=== PATIENT | female | born 1995 | race Caucasian/White ===

== ENCOUNTER 2016-06-09 17:18 | Emergency (ER) | payer BC ==
[2016-06-09 17:31] VITALS: O2SAT 100
--- NOTE | 2016-06-09 17:47 | ERPHSYRPT ---
- History of Present Illness Time Seen by Provider: 06/09/16 17:42 Historian: patient Exam Limitations: no limitations Patient Subjective Stated Complaint: PT REPORTS WAKING UP THIS AM WITH LEFT SIDED HEADACHE-STATES THAT WHEN SHE WENT TO BEND OVER RIGHT SIDED PAIN RADIATING TO CHEST BEGAN THIS AM-STATES THAT S/S WORSENED THROUGHOUT THE DAY- STATES THAT PAIN IS NOW IN HER CHEST NONRADIAITING-REPORTS HEADACHE ALL OVER WITH HER TEETH FEELING LOOSE ON THE LEFT SIDE-DENIES NUMBNESS OR TINLGING- DENIES SOB-DENIES DIAPHOESIS Triage Nursing Assessment: PT PINK WARM ET DRY-A & O X 3-RESP EASY ET NONLABORED -PUPILS PERLL-PT MOVING ALL 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 She has seen her family doctor and a member services coordinator for this. The palpitations have been significantly worse for the past 2 or 3 days. When she woke up today at noon, the patient had a left sided headache with left eye pain. This progressed to having a pain in her teeth in her left jaw. She also says that when she bends over she has right abdominal pain. Also today she has left sided chest pain that feel like palpitations that come and go. She called her member services coordinator who told her to be seen today. She does drink caffeinated drinks daily. She takes no prescribed medicines. Timing/Duration: today Activities at Onset: none Quality: aching, other (palpitations) Location: substernal Chest Pain Radiation: no radiation Severity of Pain-Max: mild Severity of Pain-Current: mild Associated Symptoms: palpitations, rash (a few spots on her leg and hand), headache Prior Chest Pain/Cardiac Workup: recently seen/treated Nitro Today/Relief: no nitro taken today Aspirin Treatment Today: no aspirin today Allergies/Adverse Reactions: No Known Drug Allergies Allergy (Unverified 06/09/16 17:31) Home Medications: No Home Meds 1 ea UD 06/09/16 [History] Hx Tetanus, Diphtheria Vaccination/Date Given: Yes Hx Influenza Vaccination/Date Given: Yes Hx Pneumococcal Vaccination/Date Given: No Immunizations Up to Date: Yes - Review of Systems Constitutional: No Fever, No Chills Eyes: No Symptoms Ears, Nose, & Throat: No Symptoms Respiratory: No Cough, No Dyspnea Cardiac: Chest Pain, Palpitations Abdominal/Gastrointestinal: Abdominal Pain Genitourinary Symptoms: No Dysuria Musculoskeletal: No Back Pain, No Neck Pain Skin: No Rash Neurological: No Dizziness, No Focal Weakness, No Sensory Changes Psychological: No Symptoms Endocrine: No Symptoms Hematologic/Lymphatic: No Symptoms Immunological/Allergic: No Symptoms All Other Systems: Reviewed and Negative - Past Medical History Pertinent Past Medical History: No - Past Surgical History Past Surgical History: No - Social History Smoking Status: Never smoker Exposure to second hand smoke: No Drug Use: none Patient Lives Alone: No - Female History Hx Last Menstrual Period: LAST MONTH - Nursing Vital Signs Temperature: 98.1 F Temperature Source: Oral Pulse Rate: 93 Respiratory Rate: 20 Blood Pressure: 128/80 Pain Intensity: 5 - Physical Exam General Appearance: anxiety, thin, other (tearful) Eye Exam: PERRL/EOMI, eyes nml inspection Ears, Nose, Throat Exam: normal ENT inspection, moist mucous membranes Neck Exam: normal inspection, non-tender, supple, full range of motion Respiratory Exam: normal breath sounds, lungs clear, No respiratory distress Cardiovascular Exam: regular rate/rhythm, normal heart sounds Gastrointestinal/Abdomen Exam: soft, No tenderness, No mass Pelvic Exam: not done Rectal Exam: not done Back Exam: normal inspection, No CVA tenderness, No vertebral tenderness Extremity Exam: normal inspection, normal range of motion Neurologic Exam: alert, oriented x 3, cooperative, normal mood/affect, sensation nml, No motor deficits Skin Exam: normal color, warm, dry, rash (one spot on right knee, left foot) SpO2 Interpretation: normal SpO2: 100 Oxygen Delivery: Room Air - Course EKG Interpreted by Me: Sinus Rhythm, NORMAL AXIS, NORMAL INTERVALS, NORMAL QRS, NORMAL ST-T - Radiology Exams Chest X-ray Interpretation: Interpreted by me, Negative Ordered Tests: Active Orders 24 hr Category Date Time Status EKG-ER Only STAT Care 06/09/16 17:49 Active IV Insertion STAT Care 06/09/16 17:49 Active CHEST 2 VIEWS (PA AND LAT) Stat Exams 06/09/16 17:50 Taken CBC W DIFF Stat Lab 06/09/16 17:45 Completed CMP Stat Lab 06/09/16 17:45 Completed TROPONIN Stat Lab 06/09/16 17:45 Completed TSH [TSH, 3RD Generation] Stat Lab 06/09/16 17:45 Completed UA Stat Lab 06/09/16 18:50 Completed Urine Triage Profile Stat Lab 06/09/16 18:50 Completed Medication Summary Discontinued Medications Generic Name Dose Route Start Last Admin Trade Name Maykel PRN Reason Stop Dose Admin Lorazepam 1 mg 06/09/16 17:52 06/09/16 18:32 Ativan 2 Mg/1 Ml Vial IV 06/09/16 17:53 1 mg STAT ONE Administration Lorazepam Confirm 06/09/16 18:28 Ativan 2 Mg/1 Ml Vial Administered 06/09/16 18:29 Dose 2 mg .ROUTE .[facility] ONE Lab/Rad Data: Laboratory Result Diagrams 06/09/16 17:45 06/09/16 17:45 Laboratory Results 06/09/16 06/09/16 06/09/16 Range/Units 18:50 18:50 17:45 WBC 7.8 (4.0-10.5) K/mm3 RBC 4.44 (4.1-5.4) M/mm3 Hgb 12.6 (12.0-16.0) gm/dl Hct 39.5 (35-47) % MCV 89.0 (78-100) fl MCH 28.4 (26-32) pg MCHC 31.9 L (32-36) g/dl RDW 14.4 H (11.5-14.0) % Plt Count 157 (150-450) K/mm3 MPV 10.7 H (6-9.5) fl Gran % 57.7 (36.0-66.0) % Lymphocytes % 30.9 (24.0-44.0) % Monocytes % 10.0 (0.0-12.0) % Eosinophils % 1.3 (0.00-5.0) % Basophils % 0.1 (0.0-0.4) % Basophils # 0.01 (0-0.4) Sodium (136-145) mEq/L Potassium (3.5-5.1) mEq/L Chloride (98-107) mEq/L Carbon Dioxide (21-32) mEq/L Anion Gap (5-15) MEQ/L BUN (9-20) mg/dL Creatinine (0.55-1.30) mg/dl Estimated GFR ML/MIN Glucose (70-110) MG/DL Calcium (8.5-10.1) mg/dL Total Bilirubin (0.2-1.0) mg/dL AST (15-37) U/L ALT (12-78) U/L Alkaline Phosphatase (46-116) U/L Troponin I (0.000-0.056) ng/ml Serum Total Protein (6.4-8.2) gm/dL Albumin (3.4-5.0) g/dL TSH 3rd Generation (0.358-3.740) mIU/L Ur Collection Type CLEAN CATCH Urine Color YELLOW (YELLOW) Urine Appearance CLEAR (CLEAR) Urine pH 6.5 (5-6) Ur Specific [place] 1.025 (1.005-1.025) Urine Protein NEGATIVE (Negative) Urine Glucose (UA) NEGATIVE (NEGATIVE) mg/dL Urine Ketones NEGATIVE (NEGATIVE) Urine Nitrite NEGATIVE (NEGATIVE) Urine Bilirubin NEGATIVE (NEGATIVE) Urine Urobilinogen 0.2 (0-1) mg/dL Urine WBC (Auto) NEGATIVE (NEGATIVE) Urine RBC (Auto) NEGATIVE (0-5) Fernando/ul Urine Opiates Level NEG. (NEGATIVE) Ur Methadone NEG. (NEGATIVE) Urine Barbiturates NEG. (NEGATIVE) Ur Phencyclidine (PCP) NEG. (NEGATIVE) Urine Amphetamine NEG. (NEGATIVE) U Benzodiazepine Level NEG. (NEGATIVE) Urine Cocaine NEG. (NEGATIVE) Urine Marijuana (THC) NEG. (NEGATIVE) Specimen Received 06/09/16:1850 06/09/16 06/09/16 Range/Units 17:45 17:45 WBC (4.0-10.5) K/mm3 RBC (4.1-5.4) M/mm3 Hgb (12.0-16.0) gm/dl Hct (35-47) % MCV (78-100) fl MCH (26-32) pg MCHC (32-36) g/dl RDW (11.5-14.0) % Plt Count (150-450) K/mm3 MPV (6-9.5) fl Gran % (36.0-66.0) % Lymphocytes % (24.0-44.0) % Monocytes % (0.0-12.0) % Eosinophils % (0.00-5.0) % Basophils % (0.0-0.4) % Basophils # (0-0.4) Sodium 142 (136-145) mEq/L Potassium 3.5 (3.5-5.1) mEq/L Chloride 106 (98-107) mEq/L Carbon Dioxide 25.7 (21-32) mEq/L Anion Gap 13.9 (5-15) MEQ/L BUN 12 (9-20) mg/dL Creatinine 0.76 (0.55-1.30) mg/dl Estimated GFR > 60 ML/MIN Glucose 79 (70-110) MG/DL Calcium 8.8 (8.5-10.1) mg/dL Total Bilirubin 0.4 (0.2-1.0) mg/dL AST 16 (15-37) U/L ALT 18 (12-78) U/L Alkaline Phosphatase 47 (46-116) U/L Troponin I < 0.017 (0.000-0.056) ng/ml Serum Total Protein 7.4 (6.4-8.2) gm/dL Albumin 4.4 (3.4-5.0) g/dL TSH 3rd Generation 0.839 (0.358-3.740) mIU/L Ur Collection Type Urine Color (YELLOW) Urine Appearance (CLEAR) Urine pH (5-6) Ur Specific [place] (1.005-1.025) Urine Protein (Negative) Urine Glucose (UA) (NEGATIVE) mg/dL Urine Ketones (NEGATIVE) Urine Nitrite (NEGATIVE) Urine Bilirubin (NEGATIVE) Urine Urobilinogen (0-1) mg/dL Urine WBC (Auto) (NEGATIVE) Urine RBC (Auto) (0-5) Fernando/ul Urine Opiates Level (NEGATIVE) Ur Methadone (NEGATIVE) Urine Barbiturates (NEGATIVE) Ur Phencyclidine (PCP) (NEGATIVE) Urine Amphetamine (NEGATIVE) U Benzodiazepine Level (NEGATIVE) Urine Cocaine (NEGATIVE) Urine Marijuana (THC) (NEGATIVE) Specimen Received - Progress Progress: improved Air Movement: good Progress Note: 06/09/16 19:24 After ativan 1 mg IV, pt has no chest pain. Blood Culture(s) Obtained: No Antibiotics given: No Counseled pt/family regarding: lab results, diagnosis, need for follow-up, rad results - Departure Time of Disposition: 19:22 Departure Disposition: Home Clinical Impression: History of palpitations, Anxiety Condition: Stable Critical Care Time: No Additional Instructions: Follow up with your member services coordinator as scheduled.
[2016-06-09] MEDS ORDERED: Ativan 2 MG/1 ML VIAL IV ONE (17:52)
[2016-06-09 18:01] LABS: BASOPHIL % 0.1 % (0.0-0.4); Eosinophil % 1.3 % (0.00-5.0); Granulocytes % 57.7 % (36.0-66.0); Lymphocytes % 30.9 % (24.0-44.0); Mean Corpuscular Hemoglobin 28.4 pg (26-32); Mean Platelet Volume 10.7 fl (6-9.5); Platelet Count 157 K/mm3 (150-450); Red Blood Count 4.44 M/mm3 (4.1-5.4); Red Cell Distribution Width 14.4 % (11.5-14.0); White Blood Count 7.8 K/mm3 (4.0-10.5)
[2016-06-09 18:28] LABS: ALBUMIN 4.4 g/dL (3.4-5.0); ALKALINE PHOSPHATASE 47 U/L (46-116); ANION GAP 13.9 MEQ/L (5-15); BILIRUBIN,TOTAL 0.4 mg/dL (0.2-1.0); BLOOD UREA NITROGEN 12 mg/dL (9-20); CHLORIDE 106 mEq/L (98-107); Carbon Dioxide 25.7 mEq/L (21-32); Glucose 79 MG/DL (70-110); Potassium 3.5 mEq/L (3.5-5.1); SGOT/AST 16 U/L (15-37); SGPT/ALT 18 U/L (12-78); SODIUM 142 mEq/L (136-145); Total Protein 7.4 gm/dL (6.4-8.2)
[2016-06-09] MEDS ORDERED: Ativan 2 MG/1 ML VIAL ONE (18:28)
[2016-06-09 18:30] LABS: TROPONIN < 0.017 ng/ml (0.000-0.056)
[2016-06-09 19:02] VITALS: BP 128/80; PULSE 93
[2016-06-09 19:05] LABS: COMPLETE URINE MICROSCOPIC? NO; Collection Type CLEAN CATCH; Ph 6.5 (5-6)
--- NOTE | 2016-06-09 20:20 | XRAY ---
Indication: Chest pain. Comparison: None PA/lateral chest demonstrates normal heart and lungs. Bony thorax intact with mild scoliosis.
== END 2016-06-09 19:34 | disposition home or self-care (01) ==
LOC: ED 17:18
DX: R07.89 Other chest pain (principal); R00.2 Palpitations; F41.9 Anxiety disorder, unspecified
CPT/HCPCS: 36000; 36415; 71020; 80053; 80307; 81002; 84443; 84484; 85025; 93005; 93041; 96374; 99283; J2060

== ENCOUNTER 2016-11-17 11:14 | Emergency (ER) | payer BC ==
--- NOTE | 2016-11-17 11:37 | ERPHSYRPT ---
- History of Present Illness Time Seen by Provider: 11/17/16 11:30 Historian: patient Exam Limitations: no limitations Patient Subjective Stated Complaint: PT REPORTS ABDOMINAL PAIN X3 DAYS WITH RADIATION TO LEFT FLANK AND LOWER BACK. STATES SHE BELIEVED SHE COULD POSSIBLY BE AND HER AT HOME TEST WAS NEGATIVE. STATES SHE COULD NOT SLEEP LAST NIGHT DUE TO PAIN. Triage Nursing Assessment: PT IS AOX3, AMBULATORY TO COT WITHOUT DIFFICULTIES, RESPS ARE EASY AND NONLABORED, ABD IS SOFT AND TENDER, BOWEL SOUNDS PRESENT X4 AND NORMOACTIVE. PAIN IS PRESENT THROUGHOUT ABDOMEN AND RADIATES TO LEFT FLANK AND LOWER BACK. Physician History: The patient is a 21-year-old female who complains of 3 days of left flank pain and abdominal pain. Her pain was worse last night. She denies nausea, vomiting , or diarrhea. Her last menstrual period ended about one week ago. She denies dysuria. She denies any abdominal surgeries. Her past medical history is significant for anxiety and palpitations. She is sexually active. Timing/Duration: day(s) (3) Activities at Onset: none Quality: aching Abdominal Pain Onset Location: flank (left) Pain Radiation: RUQ, LUQ, RLQ, LLQ Severity of Pain-Max: moderate Severity of Pain-Current: moderate Modifying Factors: Improves With: nothing Associated Symptoms: denies symptoms, No diarrhea, No nausea, No vomiting Previous symptoms: no prior history Allergies/Adverse Reactions: No Known Drug Allergies Allergy (Verified 11/17/16 11:29) Home Medications: No Home Meds 1 ea UD 06/09/16 [History] Hx Tetanus, Diphtheria Vaccination/Date Given: Yes Hx Influenza Vaccination/Date Given: No Hx Pneumococcal Vaccination/Date Given: No Immunizations Up to Date: Yes - Review of Systems Constitutional: No Fever, No Chills Eyes: No Symptoms Ears, Nose, & Throat: No Symptoms Respiratory: No Cough, No Dyspnea Cardiac: No Chest Pain, No Edema, No Syncope Abdominal/Gastrointestinal: Abdominal Pain, No Nausea, No Vomiting, No Diarrhea Genitourinary Symptoms: Flank Pain, No Dysuria Musculoskeletal: No Back Pain, No Neck Pain Skin: No Rash Neurological: No Dizziness, No Focal Weakness, No Sensory Changes Psychological: No Symptoms Endocrine: No Symptoms Hematologic/Lymphatic: No Symptoms Immunological/Allergic: No Symptoms All Other Systems: Reviewed and Negative - Past Medical History Pertinent Past Medical History: No - Past Surgical History Past Surgical History: No - Social History Smoking Status: Never smoker Exposure to second hand smoke: No Drug Use: none Patient Lives Alone: No - Female History Hx Last Menstrual Period: 11/10/16 - Nursing Vital Signs Nursing Vital Signs: Initial Vital Signs Temperature 98.2 F Temperature Source Oral Pulse Rate 80 Respiratory Rate 16 Blood Pressure [Right Arm] 122/66 Pain Intensity 3 - Physical Exam General Appearance: no apparent distress, alert Eye Exam: PERRL/EOMI, eyes nml inspection Ears, Nose, Throat Exam: normal ENT inspection, pharynx normal, moist mucous membranes Neck Exam: normal inspection, non-tender, supple, full range of motion Respiratory Exam: normal breath sounds, lungs clear, No respiratory distress Cardiovascular Exam: regular rate/rhythm, normal heart sounds Gastrointestinal/Abdomen Exam: tenderness (mild generalized.) Pelvic Exam: not done Rectal Exam: not done Back Exam: No CVA tenderness Extremity Exam: normal inspection, normal range of motion, pelvis stable Neurologic Exam: alert, oriented x 3, cooperative, normal mood/affect, nml cerebellar function, sensation nml, No motor deficits Skin Exam: normal color, warm, dry SpO2 Interpretation: normal SpO2: 100 Oxygen Delivery: Room Air - Radiology Exams Abdomen X-ray Interpretation: Interpreted by me, Negative Ordered Tests: Active Orders 24 hr Category Date Time Status IV Insertion STAT Care 11/17/16 11:39 Active KUB Stat Exams 11/17/16 11:40 Taken CBC W DIFF Stat Lab 11/17/16 11:40 Completed CMP Stat Lab 11/17/16 11:40 Completed CULTURE,URINE Stat Lab 11/17/16 11:40 Received HCG QUALITATIVE,SERUM Stat Lab 11/17/16 11:40 Completed LIPASE Stat Lab 11/17/16 11:40 Completed UA W/ MICROSCOPIC Stat Lab 11/17/16 11:40 Completed Urine Triage Profile Stat Lab 11/17/16 11:40 Completed Medication Summary Discontinued Medications Generic Name Dose Route Start Last Admin Trade Name Freq PRN Reason Stop Dose Admin Sodium Chloride 1,000 mls @ 999 mls/hr 11/17/16 11:39 11/17/16 11:50 Sodium Chloride 0.9% 1000 Ml IV 11/17/16 12:39 999 mls/hr .Q1H1M STA Administration Sodium Chloride Confirm 11/17/16 11:46 Sodium Chloride 0.9% 1000 Ml Administered 11/17/16 11:47 Dose 1,000 mls @ ud .ROUTE .[facility] ONE Ketorolac Tromethamine 30 mg 11/17/16 11:39 11/17/16 11:50 Toradol 30 Mg Injection IV 11/17/16 11:40 30 mg STAT ONE Administration Ketorolac Tromethamine Confirm 11/17/16 11:46 Toradol 30 Mg Injection Administered 11/17/16 11:47 Dose 30 mg .ROUTE .[facility] Lab/Rad Data: Laboratory Result Diagrams 11/17/16 11:40 11/17/16 11:40 Laboratory Results 11/17/16 11/17/16 11/17/16 Range/Units 11:40 11:40 11:40 WBC 2.8 L (4.0-10.5) K/mm3 RBC 4.40 (4.1-5.4) M/mm3 Hgb 12.5 (12.0-16.0) gm/dl Hct 38.2 (35-47) % MCV 86.8 (78-100) fl MCH 28.4 (26-32) pg MCHC 32.7 (32-36) g/dl RDW 13.8 (11.5-14.0) % Plt Count 101 L (150-450) K/mm3 MPV 10.8 H (6-9.5) fl Gran % 45.0 (36.0-66.0) % Lymphocytes % 26.3 (24.0-44.0) % Monocytes % 27.3 H (0.0-12.0) % Eosinophils % 0.7 (0.00-5.0) % Basophils % 0.7 (0.0-0.4) % Basophils # 0.02 (0-0.4) Sodium 139 (136-145) mEq/L Potassium 3.7 (3.5-5.1) mEq/L Chloride 104 (98-107) mEq/L Carbon Dioxide 23.9 (21-32) mEq/L Anion Gap 14.9 (5-15) MEQ/L BUN 10 (9-20) mg/dL Creatinine 0.70 (0.55-1.30) mg/dl Estimated GFR > 60 ML/MIN Glucose 89 (70-110) MG/DL Calcium 8.9 (8.5-10.1) mg/dL Total Bilirubin 0.30 (0.2-1.0) mg/dL AST 36 (15-37) U/L ALT 27 (12-78) U/L Alkaline Phosphatase 64 (46-116) U/L Serum Total Protein 7.9 (6.4-8.2) gm/dL Albumin 4.4 (3.4-5.0) g/dL Lipase 133 (73-393) U/L Serum , Qual NEGATIVE (Negative) Ur Collection Type Urine Color (YELLOW) Urine Appearance (CLEAR) Urine pH (5-6) Ur Specific [place] (1.005-1.025) Urine Protein (Negative) Urine Ketones (NEGATIVE) Urine Blood (0-5) Fernando/ul Urine Nitrite (NEGATIVE) Urine Bilirubin (NEGATIVE) Urine Urobilinogen (0-1) mg/dL Ur Leukocyte Esterase (NEGATIVE) Urine Microscopic RBC (0-2) /HPF Urine Microscopic WBC (0-5) /HPF Ur Epithelial Cells (FEW) /HPF Urine Bacteria (NEGATIVE) /HPF Urine Mucus (NEGATIVE) /HPF Urine Glucose (NEGATIVE) mg/dL Urine Opiates Level (NEGATIVE) Ur Methadone (NEGATIVE) Urine Barbiturates (NEGATIVE) Ur Phencyclidine (PCP) (NEGATIVE) Urine Amphetamine (NEGATIVE) U Benzodiazepine Level (NEGATIVE) Urine Cocaine (NEGATIVE) Urine Marijuana (THC) (NEGATIVE) Specimen Received 11/17/16 11/17/16 Range/Units 11:40 11:40 WBC (4.0-10.5) K/mm3 RBC (4.1-5.4) M/mm3 Hgb (12.0-16.0) gm/dl Hct (35-47) % MCV (78-100) fl MCH (26-32) pg MCHC (32-36) g/dl RDW (11.5-14.0) % Plt Count (150-450) K/mm3 MPV (6-9.5) fl Gran % (36.0-66.0) % Lymphocytes % (24.0-44.0) % Monocytes % (0.0-12.0) % Eosinophils % (0.00-5.0) % Basophils % (0.0-0.4) % Basophils # (0-0.4) Sodium (136-145) mEq/L Potassium (3.5-5.1) mEq/L Chloride (98-107) mEq/L Carbon Dioxide (21-32) mEq/L Anion Gap (5-15) MEQ/L BUN (9-20) mg/dL Creatinine (0.55-1.30) mg/dl Estimated GFR ML/MIN Glucose (70-110) MG/DL Calcium (8.5-10.1) mg/dL Total Bilirubin (0.2-1.0) mg/dL AST (15-37) U/L ALT (12-78) U/L Alkaline Phosphatase (46-116) U/L Serum Total Protein (6.4-8.2) gm/dL Albumin (3.4-5.0) g/dL Lipase (73-393) U/L Serum , Qual (Negative) Ur Collection Type CLEAN CATCH Urine Color YELLOW (YELLOW) Urine Appearance HAZY (CLEAR) Urine pH 5.0 (5-6) Ur Specific [place] 1.025 (1.005-1.025) Urine Protein NEGATIVE (Negative) Urine Ketones NEGATIVE (NEGATIVE) Urine Blood 50 (0-5) Fernando/ul Urine Nitrite NEGATIVE (NEGATIVE) Urine Bilirubin NEGATIVE (NEGATIVE) Urine Urobilinogen NORMAL (0-1) mg/dL Ur Leukocyte Esterase NEGATIVE (NEGATIVE) Urine Microscopic RBC 2-5 (0-2) /HPF Urine Microscopic WBC 0-2 (0-5) /HPF Ur Epithelial Cells MANY (FEW) /HPF Urine Bacteria MODERATE (NEGATIVE) /HPF Urine Mucus MODERATE (NEGATIVE) /HPF Urine Glucose NEGATIVE (NEGATIVE) mg/dL Urine Opiates Level NEG. (NEGATIVE) Ur Methadone NEG. (NEGATIVE) Urine Barbiturates NEG. (NEGATIVE) Ur Phencyclidine (PCP) NEG. (NEGATIVE) Urine Amphetamine NEG. (NEGATIVE) U Benzodiazepine Level NEG. (NEGATIVE) Urine Cocaine NEG. (NEGATIVE) Urine Marijuana (THC) NEG. (NEGATIVE) Specimen Received 11/17/16 1130 - Progress Progress: improved Counseled pt/family regarding: lab results, diagnosis, rad results - Departure Time of Disposition: 12:55 Departure Disposition: Home Clinical Impression: Abdominal pain Condition: Stable Critical Care Time: No Additional Instructions: You have abdominal pain but the cause is not clear at this time. You were given Toradol 30 mg IV and normal saline 1 L by IV in the ER. All of the lab tests and the x-ray of the abdomen were normal. Take Tylenol and ibuprofen as needed for pain. Follow-up as needed.
[2016-11-17] MEDS ORDERED: TORAdol 30 mg Injection IV ONE (11:39)
[2016-11-17] MEDS ORDERED: Sodium Chloride 0.9% 1000 ML 1,000 ML IV STA (11:39)
[2016-11-17] MEDS ORDERED: Sodium Chloride 0.9% 1000 ML 1,000 ML ONE (11:46)
[2016-11-17] MEDS ORDERED: TORAdol 30 mg Injection ONE (11:46)
[2016-11-17 11:50] LABS: BASOPHIL % 0.7 % (0.0-0.4); Eosinophil % 0.7 % (0.00-5.0); Lymphocytes % 26.3 % (24.0-44.0); Mean Cell Volume 86.8 fl (78-100); Mean Corpuscular Hemoglobin 28.4 pg (26-32); Mean Platelet Volume 10.8 fl (6-9.5); Monocytes % 27.3 % (0.0-12.0); Platelet Count 101 K/mm3 (150-450); Red Cell Distribution Width 13.8 % (11.5-14.0); White Blood Count 2.8 K/mm3 (4.0-10.5)
[2016-11-17 12:02] LABS: ADD URINE CULTURE? YES (NO); Bacteria MODERATE /HPF (NEGATIVE); Bilirubin NEGATIVE (NEGATIVE); Blood 50 Ery/ul (0-5); COMPLETE URINE MICROSCOPIC? YES; Collection Type CLEAN CATCH; Epithelial Cells MANY /HPF (FEW); Glucose NEGATIVE (NEGATIVE); Leukocyte Esterase NEGATIVE (NEGATIVE); Mucus MODERATE /HPF (NEGATIVE); WBC 0-2 /HPF (0-5)
[2016-11-17 12:10] VITALS: O2SAT 100
[2016-11-17 12:10] LABS: ALBUMIN 4.4 g/dL (3.4-5.0); ALKALINE PHOSPHATASE 64 U/L (46-116); ANION GAP 14.9 MEQ/L (5-15); BLOOD UREA NITROGEN 10 mg/dL (9-20); CHLORIDE 104 mEq/L (98-107); Carbon Dioxide 23.9 mEq/L (21-32); Glucose 89 MG/DL (70-110); LIPASE 133 U/L (73-393); Potassium 3.7 mEq/L (3.5-5.1); SGOT/AST 36 U/L (15-37); SGPT/ALT 27 U/L (12-78); SODIUM 139 mEq/L (136-145); Total Protein 7.9 gm/dL (6.4-8.2)
[2016-11-17 12:59] VITALS: BP 124/67; PULSE 78
--- NOTE | 2016-11-17 21:59 | XRAY ---
Indication: Abdominal pain. Comparison: None KUB nonacute and nonobstructed. Solid organs and osseous structures unremarkable.
== END 2016-11-17 13:00 | disposition home or self-care (01) ==
LOC: ED 11:14
DX: R10.31 Right lower quadrant pain (principal); R10.32 Left lower quadrant pain; R10.11 Right upper quadrant pain; R10.12 Left upper quadrant pain
CPT/HCPCS: 36000; 36415; 74000; 80053; 80307; 81000; 83690; 84703; 85025; 87086; 96360; 96374; 99284; J1885

== ENCOUNTER 2019-11-10 15:30 | Emergency (ER) | payer OTHER ==
[2019-11-10] MEDS ORDERED: Sodium Chloride 0.9% 1000 ML 1,000 ML IV STA (15:33)
--- NOTE | 2019-11-10 15:34 | ERPHSYRPT ---
- History of Present Illness Time Seen by Provider: 11/10/19 15:45 Source: patient Exam Limitations: no limitations Physician History: This is a 24-year-old female who is approximately 15 weeks and presents with 2-day history of suprapubic pressure and cramping. She denies any vaginal bleeding. Patient had significant difficulty with a prior and delivered early at approximately 23 weeks. Currently, the patient is in her second . Dr. Schaefer, her circus train supervisor, contacted me and wanted the patient to be hydrated intravenously, obtain a urinalysis, obtain a CBC, and order an obstetric ultrasound to determine cervical length. I am to call him back once we receive the results. Patient has had no nausea vomiting or diarrhea. She has no chest pain and she is not short of breath. Timing/Duration: yesterday Activites at Onset: none Quality: cramping (Mild suprapubic), pressure (Mild suprapubic) Pain Radiation: none Severity of Pain-Max: mild Severity of Pain-Current: mild Sexual intercourse history: non-contributory Modifying Factors: Improves With: nothing Associated Symptoms: Allergies/Adverse Reactions: No Known Drug Allergies Allergy (Verified 11/17/16 11:29) Home Medications: No Home Meds [No Home Meds] 1 [facility] UD 06/09/16 [History] Hx Tetanus, Diphtheria Vaccination/Date Given: Yes Hx Influenza Vaccination/Date Given: No Hx Pneumococcal Vaccination/Date Given: No Travel Risk - International Travel Have you traveled outside of the country in past 3 weeks: No - Coronavirus Screening Are you exhibiting any of the following symptoms?: No Close contact with a COVID-19 positive Pt in past 14-21 Days: No - Review of Systems Constitutional: No Symptoms Eyes: No Symptoms Ears, Nose, & Throat: No Symptoms Respiratory: No Symptoms Cardiac: No Symptoms Abdominal/Gastrointestinal: Abdominal Pain (Very mild suprapubic pressure and cramping), No Nausea, No Vomiting, No Diarrhea Genitourinary Symptoms: No Symptoms Musculoskeletal: No Symptoms Skin: No Symptoms Neurological: No Symptoms Psychological: No Symptoms Endocrine: No Symptoms Hematologic/Lymphatic: No Symptoms Immunological/Allergic: No Symptoms All Other Systems: Reviewed and Negative - Past Medical History Pertinent Past Medical History: No Neurological History: No Pertinent History ENT History: No Pertinent History Cardiac History: No Pertinent History Respiratory History: No Pertinent History Endocrine Medical History: No Pertinent History Musculoskeletal History: No Pertinent History GI Medical History: No Pertinent History History: No Pertinent History Psycho-Social History: No Pertinent History - Past Surgical History Past Surgical History: No Neuro Surgical History: No Pertinent History Cardiac: No Pertinent History Respiratory: No Pertinent History Gastrointestinal: No Pertinent History Genitourinary: No Pertinent History Musculoskeletal: No Pertinent History - Social History Smoking Status: Never smoker Exposure to second hand smoke: No Drug Use: none Patient Lives Alone: No - Female History Hx Now: Yes Gestational Age: 15 weeks - Nursing Vital Signs Nursing Vital Signs: Initial Vital Signs Temperature 98.4 F 11/10/19 15:37 Respiratory Rate 20 11/10/19 15:37 O2 Sat by Pulse Oximetry 99 11/10/19 15:37 Pain Scale Pain Intensity 5 - Physical Exam General Appearance: no apparent distress, alert, anxiety Eye Exam: PERRL/EOMI, eyes nml inspection Ears, Nose, Throat Exam: normal ENT inspection, moist mucous membranes Neck Exam: normal inspection, non-tender, supple, full range of motion Respiratory Exam: normal breath sounds, lungs clear, airway intact, No chest tenderness, No respiratory distress Cardiovascular Exam: regular rate/rhythm, normal heart sounds, normal peripheral pulses Gastrointestinal/Abdomen Exam: soft, normal bowel sounds, No tenderness, No guarding, No rebound Pelvic Exam: not done, No vaginal bleeding Rectal Exam: not done Back Exam: normal inspection, normal range of motion, No CVA tenderness, No vertebral tenderness Extremity Exam: normal inspection, normal range of motion, pelvis stable Neurologic Exam: alert, oriented x 3, cooperative, street sweeper operator II-XII nml as tested Skin Exam: normal color, warm, dry Lymphatic Exam: No adenopathy SpO2 Interpretation: normal O2 Delivery: Room Air - Course Nursing assessment & vital signs reviewed: Yes Ordered Tests: Active Orders 24 hr Category Date Time Status IV Insertion STAT Care 11/10/19 15:33 Active OB >14 WKS 1st GESTATION [US] Stat Exams 11/10/19 15:34 Completed CBC W DIFF Stat Lab 11/10/19 15:33 Completed UA W/RFX UR CULTURE Stat Lab 11/10/19 15:37 Completed Medication Summary Generic Name Dose Route Start Last Admin Trade Name Freq PRN Reason Stop Dose Admin Sodium Chloride 1,000 mls @ 999 mls/hr 11/10/19 15:33 11/10/19 16:05 Sodium Chloride 0.9% 1000 Ml IV 11/10/19 16:33 999 mls/hr .[id number] STA Administration Discontinued Medications Generic Name Dose Route Start Last Admin Trade Name Maykel PRN Reason Stop Dose Admin Sodium Chloride Confirm 11/10/19 15:59 Sodium Chloride 0.9% 1000 Ml Administered 11/10/19 16:00 Dose 1,000 mls @ ud .ROUTE .[facility] Lab/Rad Data: Laboratory Result Diagrams 11/10/19 15:33 Laboratory Results 11/10/19 11/10/19 Range/Units 15:37 15:33 WBC 10.0 (4.0-10.5) K/mm3 RBC 3.86 L (4.1-5.4) M/mm3 Hgb 12.5 (12.0-16.0) gm/dl Hct 36.4 (35-47) % MCV 94.3 (78-100) fl MCH 32.4 H (26-32) pg MCHC 34.3 (32-36) g/dl RDW 12.8 (11.5-14.0) % Plt Count 124 L (150-450) K/mm3 MPV 10.3 (7.5-11.0) fl Gran % 75.8 H (36.0-66.0) % Eos # (Auto) 0.14 (0-0.5) Absolute Lymphs (auto) 1.36 (1.0-4.6) Absolute Monos (auto) 0.89 (0.0-1.3) Lymphocytes % 13.7 L (24.0-44.0) % Monocytes % 8.9 (0.0-12.0) % Eosinophils % 1.4 (0.00-5.0) % Basophils % 0.2 (0.0-0.4) % Absolute Granulocytes 7.54 H (1.4-6.9) Basophils # 0.02 (0-0.4) Urine Color YELLOW (YELLOW) Urine Appearance CLOUDY (CLEAR) Urine pH 7.0 (5-6) Ur Specific [place] 1.011 (1.005-1.025) Urine Protein NEGATIVE (Negative) Urine Ketones NEGATIVE (NEGATIVE) Urine Blood NEGATIVE (0-5) Fernando/ul Urine Nitrite NEGATIVE (NEGATIVE) Urine Bilirubin NEGATIVE (NEGATIVE) Urine Urobilinogen NEGATIVE (0-1) mg/dL Ur Leukocyte Esterase SMALL (NEGATIVE) Urine WBC (Auto) NONE (0-5) /HPF Urine RBC (Auto) NONE (0-2) /HPF U Epithel Cells (Auto) RARE (FEW) /HPF Urine Bacteria (Auto) NONE (NEGATIVE) /HPF Amorphous Crystals MODERATE (NEGATIVE) /HPF Urine Culture Reflexed NO (NO) Urine Glucose NEGATIVE (NEGATIVE) mg/dL - Progress Progress: re-examined Air Movement: good Progress Note: 11/10/19 16:10 Report on obstetric ultrasound by machine set up technician reveals a single live intrauterine at 15 weeks, heart tones of 154, cervical length of 3.5 cm. No abnormalities reported on this ultrasound 11/10/19 16:29 Reviewed the reports of all the studies with Dr. Schaefer. He states the patient may be discharged to home and to follow-up with him at her next scheduled appointment which is next week. Blood Culture(s) Obtained: No Antibiotics given: No Discussed with : Tenzin Counseled pt/family regarding: lab results, diagnosis, need for follow-up, rad results - Departure Departure Disposition: Home Clinical Impression: Abdominal cramping affecting , antepartum Condition: Stable Critical Care Time: No Referrals: DOCTOR,NO FAMILY [NON-STAFF PHY W/O PRIVILEGES] - Additional Instructions: Continue all your medications as prescribed. Keep your appointment with your circus train supervisor that has been scheduled for next week.
[2019-11-10] MEDS ORDERED: Sodium Chloride 0.9% 1000 ML 1,000 ML ONE (15:59)
[2019-11-10 16:05] LABS: Amourphous Crystal MODERATE /HPF (NEGATIVE); Appearance CLOUDY (CLEAR); Bilirubin NEGATIVE (NEGATIVE); Blood NEGATIVE Ery/ul (0-5); Epithelial Cells RARE /HPF (FEW); Glucose NEGATIVE (NEGATIVE); Ketones NEGATIVE (NEGATIVE); Leukocyte Esterase SMALL (NEGATIVE); Nitrite NEGATIVE (NEGATIVE); Protein,Urine Dip NEGATIVE (Negative); Specific Gravity 1.011 (1.005-1.025); Urobilinogen NEGATIVE mg/dL (0-1)
[2019-11-10 16:18] LABS: Absolute Neutrophil Ct (ANC) 7.54 (1.4-6.9); BASOPHIL % 0.2 % (0.0-0.4); Basophil (Absolute #) 0.02 (0-0.4); Eosinophil % 1.4 % (0.00-5.0); Eosinophil (Absolute #) 0.14 (0-0.5); Hematocrit 36.4 % (35-47); Hemoglobin 12.5 gm/dl (12.0-16.0); Lymphocyte (Absolute #) 1.36 (1.0-4.6); Lymphocytes % 13.7 % (24.0-44.0); Mean Cell Volume 94.3 fl (78-100); Mean Corpuscular Hemoglobin 32.4 pg (26-32); Mean Corpuscular Hgb Concent. 34.3 g/dl (32-36); Mean Platelet Volume 10.3 fl (7.5-11.0); Monocyte (Absolute #) 0.89 (0.0-1.3); Monocytes % 8.9 % (0.0-12.0); Neutrophil % 75.8 % (36.0-66.0); Platelet Count 124 K/mm3 (150-450); Red Blood Count 3.86 M/mm3 (4.1-5.4); Red Cell Distribution Width 12.8 % (11.5-14.0)
--- NOTE | 2019-11-10 16:22 | XRAY ---
Indication: Cramping. Two-dimensional early OB ultrasound performed. Comparison: None There is a single viable intrauterine with heart rate 154 BPM. Mean composite gestational age is 15 weeks 0 days. Fundal placenta without abnormal retroplacental fluid. Cervix is closed and measures 3.5 cm in length. Impression: Single viable intrauterine measuring 15 weeks 0 days. Expected date confinement is May 03, 2020. No acute findings.
[2019-11-10 16:57] VITALS: BP 134/87; PULSE 91; O2SAT 100
== END 2019-11-10 16:56 | disposition home or self-care (01) ==
LOC: ED 15:30
DX: O26.892 Other specified pregnancy related conditions, second trimester (principal); Z3A.15 15 weeks gestation of pregnancy; R10.9 Unspecified abdominal pain
CPT/HCPCS: 36000; 36415; 76805; 81001; 85025; 96360; 99284

== ENCOUNTER 2020-03-14 16:20 | Observation (INO) | payer MEDICAID ==
[2020-03-14 17:21] VITALS: BP 112/68; PULSE 94; O2SAT 97
== END 2020-03-14 17:50 | disposition home or self-care (01) ==
LOC: MED SURG 16:20
PROVIDERS: ADMIT Obstetrics & Gynecology; ATTEND Obstetrics & Gynecology
DX: Z34.83 Encounter for supervision of other normal pregnancy, third trimester (principal); Z3A.32 32 weeks gestation of pregnancy
CPT/HCPCS: 59025; G0378

== ENCOUNTER 2020-03-17 15:11 | Observation (INO) | payer MEDICAID ==
[2020-03-17 16:09] VITALS: BP 106/66; PULSE 81
== END 2020-03-17 16:30 | disposition home or self-care (01) ==
LOC: OB 15:11
PROVIDERS: ADMIT Obstetrics & Gynecology; ATTEND Obstetrics & Gynecology
DX: Z34.83 Encounter for supervision of other normal pregnancy, third trimester (principal); Z3A.33 33 weeks gestation of pregnancy
CPT/HCPCS: 59025; G0378

== ENCOUNTER 2020-06-14 06:10 | Day surgery (SDC) | payer MEDICAID ==
[2020-06-14] MEDS ORDERED: Lactated Ringers 1,000 ML IV ONE (06:23)
[2020-06-14] MEDS ORDERED: Lactated Ringers 1,000 ML IV SCH (06:30)
[2020-06-14] MEDS ORDERED: KEFZOL 1 GM/50 ML PREMIX** 1 GM/50 ML IVPB IV SCH (06:30)
[2020-06-14] MEDS ORDERED: DIPRIVAN 200 MG/20 ML IV ONE (08:25)
[2020-06-14] MEDS ORDERED: Xylocaine-Mpf 2% 5 Ml Vial ONE (08:25)
[2020-06-14] MEDS ORDERED: Zofran 4 MG/2 ML VIAL ONE (08:25)
[2020-06-14] MEDS ORDERED: Decadron 4 MG INJ ONE (08:25)
[2020-06-14] MEDS ORDERED: SUBLIMAZE 100 MCG/2 ML ONE (08:25)
[2020-06-14] MEDS ORDERED: TRANEXAMIC ACID 1000 MG/10 ML 1,000 MG in Sodium Chloride 0.9% 100 ML IVPB 100 ML IV ONE (09:00)
[2020-06-14 09:31] VITALS: O2SAT 100
[2020-06-14 09:56] VITALS: BP 137/79; PULSE 65
--- NOTE | 2020-06-15 08:35 | OP ---
SURGERY DATE/TIME: 06/14/2020 0825 PREOPERATIVE DIAGNOSIS: Abnormal uterine bleeding. POSTOPERATIVE DIAGNOSIS: Abnormal uterine bleeding. PROCEDURE: Hysteroscopy, D&C. SURGEON: Raj Schaefer D.O. TERRA COTTA SETTER: pressure testing technician. ANESTHESIA: General. ESTIMATED BLOOD LOSS: Minimal. COMPLICATIONS: None. INDICATIONS: The risks, benefits, indications and alternatives of the procedure were reviewed with the patient prior to the procedure. The patient understood the risk of infection, bleeding, bowel injury, bladder injury, uterine perforation, pelvic infection, thromboembolic disorder that may be associated with this procedure and desires to have this procedure as a possible means to alleviate her current medical condition. DESCRIPTION OF PROCEDURE AND FINDINGS: At this point the patient is taken to the operating room, given general sedation, placed in dorsal lithotomy position, prepped and draped in the usual sterile fashion. A weighted speculum is then placed in the patient's vagina and the anterior lip of the cervix is grasped with a single tooth tenaculum. Endocervical dilators were advanced through the endocervical canal as a means to dilate the cervix and the uterus was sounded to approximately 10 cm. From this point the hysteroscope was then placed in through the endocervical canal where visualization revealed no gross abnormalities within the endometrial lining. From this point the hysteroscope was then removed and the curette was then placed into the fundus of the uterus and curettage is performed in all four quadrants of the uterus retrieving a mild amount of tissue. From this point hemostasis obtained. All instruments were removed from the patient's vaginal region. The patient was then taken out of dorsal lithotomy position and was then taken to the recovery room in stable condition. All instruments and laps were accounted for x2.
== END 2020-06-14 10:05 | disposition home or self-care (01) ==
LOC: SDC 06:10
PROVIDERS: ATTEND Obstetrics & Gynecology
DX: N93.9 Abnormal uterine and vaginal bleeding, unspecified (principal)
CPT/HCPCS: 84703; J0690; J1100; J2405; J2704; J3010